=== PATIENT | female | born 1945 | race Caucasian/White ===

== ENCOUNTER → 2016-06-26 | Outpatient (CLI) | payer MEDICARE, MEDICAID | END | disposition home or self-care (01) | LOC: MAMMO 12:03 | PROVIDERS: ATTEND Internal Medicine | DX: Z12.31 Encounter for screening mammogram for malignant neoplasm of breast (principal) | CPT/HCPCS: G0202 ==

== ENCOUNTER 2017-05-01 17:14 | Emergency (ER) | payer MEDICARE, MEDICAID ==
[~2017-05-01] VITALS: Ht 160 cm; Wt 65.0 kg
[2017-05-01] MEDS ORDERED: SODIUM CHLORIDE 0.9% 1,000 ML IV ONE (21:15)
[2017-05-01 21:37] LABS: BASOPHILS % 0.4 % (0.0-2.0); EOSINOPHILS % 0.6 % (0.0-5.0); HEMATOCRIT. 34.5 % (36.0-48.0); HEMOGLOBIN. 11.8 g/dL (12.0-16.0); LYMPHOCYTES % 13.9 % (20.0-50.0); MEAN CORPUSCULAR HEMOGLOBIN 30.8 pg (28.0-32.0); MEAN CORPUSCULAR VOLUME 89.5 fL (81.0-99.0); MEAN PLATELET VOLUME 8.2 fl (7.4-10.4); MONOCYTES % 7.2 % (2.0-8.0); NEUTROPHILS % 77.9 % (40.0-76.0); PLATELET 231 x1000/uL (130-400); RED BLOOD CELL COUNT 3.85 mill/uL (4.2-5.4); RED CELL DISTRIBUTION WIDTH 12.7 % (11.6-14.6)
[2017-05-02 00:19] VITALS: BP 134/64
== END 2017-05-02 00:20 | disposition home or self-care (01) ==
LOC: ER 17:14
DX: B34.9 Viral infection, unspecified (principal); I48.91 Unspecified atrial fibrillation; I10 Essential (primary) hypertension; H40.9 Unspecified glaucoma; E11.9 Type 2 diabetes mellitus without complications
CPT/HCPCS: 36415; 71045; 80048; 85025; 87804; 96360; 96361; 99285; J7030

== ENCOUNTER 2017-11-01 10:14 | Emergency (ER) | payer MEDICARE, MEDICAID ==
[~2017-11-01] VITALS: Ht 162.6 cm; Wt 63.0 kg
[2017-11-01 14:21] LABS: CHLORIDE 106 mEq/L (98-107)
[2017-11-01 14:23] LABS: INR 1.4; PARTIAL THROMBOPLASTIN TIME 29.8 sec (23.4-31.0)
[2017-11-01 14:34] LABS: BASOPHILS % 0.2 % (0.0-2.0); EOSINOPHILS % 2.1 % (0.0-5.0); HEMATOCRIT. 41.2 % (36.0-48.0); HEMOGLOBIN. 13.7 g/dL (12.0-16.0); LYMPHOCYTES % 34.1 % (20.0-50.0); MEAN CORPUSCULAR VOLUME 93.2 fL (81.0-99.0); MEAN PLATELET VOLUME 8.4 fl (7.4-10.4); MONOCYTES % 7.9 % (2.0-8.0); NEUTROPHILS % 55.7 % (40.0-76.0); PLATELET 215 x1000/uL (130-400); RED BLOOD CELL COUNT 4.42 mill/uL (4.2-5.4); RED CELL DISTRIBUTION WIDTH 12.9 % (11.6-14.6)
[2017-11-01] MEDS ORDERED: FUROSEMIDE 20MG TABLET PO ONE (15:30)
[2017-11-01] MEDS ORDERED: POTASSIUM CHLORIDE 20MEQ TABLET SR PO ONE (15:30)
[2017-11-01 16:38] VITALS: BP 153/67
== END 2017-11-01 16:42 | disposition home or self-care (01) ==
LOC: ER 10:14
DX: R60.9 Edema, unspecified (principal); I10 Essential (primary) hypertension; I48.91 Unspecified atrial fibrillation; E11.9 Type 2 diabetes mellitus without complications; H40.9 Unspecified glaucoma
CPT/HCPCS: 36415; 71045; 73610; 80048; 83880; 84484; 85025; 85610; 85730; 93005; 93970; 99285

== ENCOUNTER 2018-03-28 15:56 | Emergency (ER) | payer MEDICARE, MEDICAID ==
[~2018-03-28] VITALS: Ht 162.6 cm; Wt 63.0 kg
[2018-03-28] MEDS ORDERED: HYDROCODONE/ACETAMINOPHEN 5/325MG TABLET PO ONE (20:45)
[2018-03-28 22:03] VITALS: BP 128/62
== END 2018-03-28 22:04 | disposition home or self-care (01) ==
LOC: ER 15:56
DX: S82.002A Unspecified fracture of left patella, initial encounter for closed fracture (principal); E11.9 Type 2 diabetes mellitus without complications; I10 Essential (primary) hypertension; I48.91 Unspecified atrial fibrillation; Z90.89 Acquired absence of other organs; W01.0XXA Fall on same level from slipping, tripping and stumbling without subsequent striking against object, initial encounter; Y93.89 Activity, other specified; Y92.89 Other specified places as the place of occurrence of the external cause; Y99.8 Other external cause status
CPT/HCPCS: 73562; 82962; 99283; L1830

== ENCOUNTER 2019-01-12 09:54 | Emergency (ER) | payer MEDICARE, MEDICAID ==
[~2019-01-12] VITALS: Ht 162.6 cm; Wt 64.0 kg
[2019-01-12 10:17] VITALS: BP 157/54
[2019-01-12] MEDS ORDERED: ACETAMINOPHEN 325MG TABLET PO STA (10:41)
== END 2019-01-12 13:08 | disposition home or self-care (01) ==
LOC: ER 09:54
DX: S92.355A Nondisplaced fracture of fifth metatarsal bone, left foot, initial encounter for closed fracture (principal); E11.9 Type 2 diabetes mellitus without complications; E89.0 Postprocedural hypothyroidism; W01.0XXA Fall on same level from slipping, tripping and stumbling without subsequent striking against object, initial encounter; Y93.89 Activity, other specified; Y92.018 Other place in single-family (private) house as the place of occurrence of the external cause
CPT/HCPCS: 73610; 73630; 99283

== ENCOUNTER 2020-05-01 11:13 | Emergency (ER) | payer MEDICARE, MEDICAID ==
[~2020-05-01] VITALS: Ht 162.6 cm; Wt 65.0 kg
[2020-05-01] MEDS ORDERED: FOLI-43 PO (11:31)
[2020-05-01] MEDS ORDERED: DILT120C11 PO (11:31)
[2020-05-01] MEDS ORDERED: GLIP10TA10 PO (11:31)
[2020-05-01] MEDS ORDERED: METF-416 PO (11:31)
[2020-05-01] MEDS ORDERED: FERR325T6 PO (11:31)
[2020-05-01] MEDS ORDERED: CARB-32 PO (11:31)
[2020-05-01] MEDS ORDERED: ALEN70TA79 PO (11:31)
[2020-05-01] MEDS ORDERED: METO100T16 PO (11:31)
[2020-05-01] MEDS ORDERED: ASPI-867 MT (11:31)
[2020-05-01] MEDS ORDERED: LISI30TA36 PO (11:31)
[2020-05-01 12:31] LABS: BASOPHILS % 0.2 % (0.0-2.0); EOSINOPHILS % 0.9 % (0.0-5.0); HEMATOCRIT. 42.5 % (36.0-48.0); HEMOGLOBIN. 14.4 g/dL (12.0-16.0); LYMPHOCYTES % 21.3 % (20.0-50.0); MEAN CORPUSCULAR HEMOGLOBIN 31.5 pg (28.0-32.0); MEAN CORPUSCULAR VOLUME 92.9 fL (81.0-99.0); MEAN PLATELET VOLUME 8.5 fl (7.4-10.4); NEUTROPHILS % 71.6 % (40.0-76.0); PLATELET 296 x1000/uL (130-400); RED BLOOD CELL COUNT 4.57 mill/uL (4.2-5.4); RED CELL DISTRIBUTION WIDTH 12.9 % (11.6-14.6)
[2020-05-01 12:35] LABS: CHLORIDE 103 mEq/L (98-107)
[2020-05-01] MEDS ORDERED: MECLIZINE 25MG TABLET PO ONE (12:45)
[2020-05-01 14:51] VITALS: BP 166/78
[2020-05-01] MEDS ORDERED: MECL-159 MT (15:35)
== END 2020-05-01 15:45 | disposition home or self-care (01) ==
LOC: ER 11:13 → CANBEDREQ 19:20
DX: R42 Dizziness and giddiness (principal); R25.1 Tremor, unspecified; I10 Essential (primary) hypertension; E11.65 Type 2 diabetes mellitus with hyperglycemia; Z98.890 Other specified postprocedural states; Z79.82 Long term (current) use of aspirin; Z79.899 Other long term (current) drug therapy
CPT/HCPCS: 36415; 70450; 71045; 80053; 84484; 85025; 93005; 99285; J8597

== ENCOUNTER 2021-03-27 08:53 | Emergency (ER) | payer MEDICARE, MEDICAID ==
[~2021-03-27] VITALS: Ht 162.6 cm; Wt 68.0 kg
[~2021-03-27 08:53] MED LIST: ALEN70TA79 PO; ASPI-867 MT; CARB-32 PO; DILT120C11 PO; FERR325T6 PO; FOLI-43 PO; GLIP10TA10 PO; LISI30TA36 PO; MECL-159 MT; METF-416 PO; METO100T16 PO
[2021-03-27 08:56] VITALS: BP 144/53
[2021-03-27 09:58] LABS: BASOPHILS % 0.4 % (0.0-2.0); EOSINOPHILS % 0.9 % (0.0-5.0); HEMATOCRIT. 38.5 % (36.0-48.0); HEMOGLOBIN. 13.1 g/dL (12.0-16.0); MEAN CORPUSCULAR HEMOGLOBIN 30.8 pg (28.0-32.0); MEAN CORPUSCULAR VOLUME 90.2 fL (81.0-99.0); MEAN PLATELET VOLUME 8.1 fl (7.4-10.4); MONOCYTES % 7.1 % (2.0-8.0); NEUTROPHILS % 71.6 % (40.0-76.0); PLATELET 273 x1000/uL (130-400); RED BLOOD CELL COUNT 4.27 mill/uL (4.2-5.4); RED CELL DISTRIBUTION WIDTH 12.3 % (11.6-14.6)
[2021-03-27 10:06] LABS: CHLORIDE 96 mEq/L (98-107)
[2021-03-27 11:01] LABS: CLARITY URINE CLEAR (CLEAR); COLOR URINE YELLOW (YELLOW); KETONES URINE NEGATIVE (NEGATIVE); LEUKOCYTE ESTERASE URINE 2+ (NEGATIVE); NITRITE URINE NEGATIVE (NEGATIVE); OCCULT BLOOD URINE NEGATIVE (NEGATIVE); PROTEIN URINE NEGATIVE (NEGATIVE); SPECIFIC GRAVITY URINE 1.009 (1.005-1.030); UROBILINOGEN URINE 0.2 E.U./dL (0.2-1.0)
[2021-03-27] MEDS ORDERED: NITR-87 MT (11:27)
== END 2021-03-27 12:05 | disposition home or self-care (01) ==
LOC: ER 08:53
DX: E87.1 Hypo-osmolality and hyponatremia (principal); R51.9 Headache, unspecified; N39.0 Urinary tract infection, site not specified; E11.9 Type 2 diabetes mellitus without complications
CPT/HCPCS: 36415; 80048; 81003; 85025; 85651; 87077; 99283

== ENCOUNTER 2021-05-14 21:01 | Emergency (ER) | payer MEDICARE, MEDICAID ==
[~2021-05-14] VITALS: Ht 167.6 cm; Wt 65.0 kg
[~2021-05-14 21:01] MED LIST changes: +NITR-87 MT
[2021-05-14 23:33] LABS: BASOPHILS % 0.2 % (0.0-2.0); EOSINOPHILS % 1.2 % (0.0-5.0); HEMATOCRIT. 36.4 % (36.0-48.0); HEMOGLOBIN. 12.8 g/dL (12.0-16.0); MEAN CORPUSCULAR HEMOGLOBIN 31.6 pg (28.0-32.0); MEAN CORPUSCULAR VOLUME 90.2 fL (81.0-99.0); MEAN PLATELET VOLUME 7.8 fl (7.4-10.4); MONOCYTES % 9.3 % (2.0-8.0); NEUTROPHILS % 53.3 % (40.0-76.0); PLATELET 251 x1000/uL (130-400); RED BLOOD CELL COUNT 4.04 mill/uL (4.2-5.4); RED CELL DISTRIBUTION WIDTH 12.6 % (11.6-14.6)
[2021-05-14 23:57] LABS: CHLORIDE 99 mEq/L (98-107)
[2021-05-15 01:44] VITALS: BP 131/59
== END 2021-05-15 02:17 | disposition home or self-care (01) ==
LOC: ER 21:01
DX: I10 Essential (primary) hypertension (principal); E11.9 Type 2 diabetes mellitus without complications; E89.0 Postprocedural hypothyroidism; Z79.84 Long term (current) use of oral hypoglycemic drugs
CPT/HCPCS: 36415; 80053; 85025; 99284

== ENCOUNTER 2022-03-07 08:48 | Emergency (ER) | payer MEDICARE, MEDICAID ==
[~2022-03-07] VITALS: Ht 167.6 cm; Wt 60.0 kg
[2022-03-07] MEDS ORDERED: CLONIDINE 0.2MG TABLET PO ONE (10:00)
[2022-03-07 10:22] LABS: BASOPHILS % 0.1 % (0.0-2.0); CHLORIDE 103 mEq/L (98-107); EOSINOPHILS % 0.4 % (0.0-5.0); HEMATOCRIT. 40.4 % (36.0-48.0); LYMPHOCYTES % 18.1 % (20.0-50.0); MEAN CORPUSCULAR HEMOGLOBIN 31.4 pg (28.0-32.0); MEAN CORPUSCULAR VOLUME 90.7 fL (81.0-99.0); MEAN PLATELET VOLUME 9.1 fl (7.4-10.4); MONOCYTES % 5.6 % (2.0-8.0); NEUTROPHILS % 75.8 % (40.0-76.0); PLATELET 261 x1000/uL (130-400); RED BLOOD CELL COUNT 4.45 mill/uL (4.2-5.4); RED CELL DISTRIBUTION WIDTH 12.9 % (11.6-14.6)
[2022-03-07 12:55] VITALS: BP 91/46
== END 2022-03-07 13:08 | disposition home or self-care (01) ==
LOC: ER 08:48
DX: I10 Essential (primary) hypertension (principal); E11.9 Type 2 diabetes mellitus without complications; Z98.890 Other specified postprocedural states; Z79.899 Other long term (current) drug therapy
CPT/HCPCS: 36415; 71045; 80053; 83880; 84484; 85025; 93005; 99285

== ENCOUNTER 2024-02-07 15:37 | Inpatient (IN) | payer MEDICARE, MEDICAID ==
[~2024-02-07] VITALS: Ht 162.6 cm; Wt 69.9 kg
[~2024-02-07 15:37] MED LIST changes: -ALEN70TA79 PO; -ASPI-867 MT; -GLIP10TA10 PO; +GLIP10TA17 PO; +INSU100I28 SQ; -MECL-159 MT; +MECL-299 MT; -NITR-87 MT
[2024-02-07 15:49] VITALS: O2SAT 99
[2024-02-07 16:32] LABS: BASOPHILS % 0.1 % (0.0-2.0); EOSINOPHILS % 0.4 % (0.0-5.0); HEMATOCRIT. 32.2 % (36.0-48.0); LYMPHOCYTES % 17.9 % (20.0-50.0); MEAN CORPUSCULAR HEMOGLOBIN 30.7 pg (28.0-32.0); MEAN CORPUSCULAR HGB CONC 34.2 g/dL (31.0-37.0); MEAN CORPUSCULAR VOLUME 89.8 fL (81.0-99.0); MEAN PLATELET VOLUME 7.3 fl (7.4-10.4); MONOCYTES % 8.3 % (2.0-8.0); NEUTROPHILS % 73.3 % (40.0-76.0); PLATELET 281 x1000/uL (130-400); RED BLOOD CELL COUNT 3.58 mill/uL (4.2-5.4); RED CELL DISTRIBUTION WIDTH 12.5 % (11.6-14.6); WHITE BLOOD COUNT 7.9 x1000/uL (4.5-11.0)
[2024-02-07 16:41] LABS: CHLORIDE 89 mEq/L (98-107); POTASSIUM 4.5 mEq/L (3.5-5.1)
[2024-02-07 16:42] LABS: CARBON DIOXIDE 23 mEq/L (21-32)
[2024-02-07 16:47] LABS: CREATININE 0.9 mg/dL (0.6-1.0); GLUCOSE 204 mg/dL (70-105); UREA NITROGEN BLOOD 16 mg/dL (9-23)
[2024-02-07 17:01] LABS: SODIUM 119 mEq/L (136-145)
[2024-02-07 18:38] LABS: ALANINE AMINOTRANSFERASE < 7 IU/L (10-49); ALBUMIN 4.1 g/dL (3.2-4.8); ASPARTATE AMINOTRANSFERASE 22 IU/L (<34); BILIRUBIN DIRECT 0.1 mg/dL (<=3.0); BILIRUBIN TOTAL 0.3 mg/dL (0.1-1.0); PROTEIN TOTAL 6.7 g/dL (6.0-8.3)
[2024-02-07 18:51] LABS: CLARITY URINE CLEAR (CLEAR); COLOR URINE YELLOW (YELLOW); GLUCOSE URINE NEGATIVE (NEGATIVE); KETONES URINE NEGATIVE (NEGATIVE); LEUKOCYTE ESTERASE URINE TRACE (NEGATIVE); NITRITE URINE NEGATIVE (NEGATIVE); OCCULT BLOOD URINE NEGATIVE (NEGATIVE); PH URINE 6.5 (4.5-8.0); PROTEIN URINE NEGATIVE (NEGATIVE); SPECIFIC GRAVITY URINE 1.005 (1.005-1.030); UROBILINOGEN URINE 0.2 E.U./dL (0.2-1.0)
[2024-02-07 18:55] LABS: SODIUM URINE RANDOM 31 mEq/L
[2024-02-07 19:01] LABS: OSMOLALITY URINE 170 mOsm/kg (500-850)
[2024-02-07 19:02] LABS: UREA NITROGEN URINE RANDOM 177 mg/dL
[2024-02-07 19:04] LABS: RBC URINE NONE SEEN /hpf (0-2)
[2024-02-07 19:05] LABS: BACTERIA URINE TRACE; SQUAMOUS EPITHELIAL CELL URINE RARE /lpf (RARE/1+)
[2024-02-07] MEDS: MORPHINE SULFATE 2 MG/ML INJ (NOT FOR IM USE) IV ONE (21:30)
[2024-02-07] MEDS: SODIUM CHLORIDE 1000MG TABLET PO ONE (21:58)
[2024-02-07] MEDS: FUROSEMIDE 20MG/2ML VIAL IVP ONE (22:00)
[2024-02-07 22:05] VITALS: BP 156/65; PULSE 75; RESP 16; TEMP 36.33624; O2SAT 100
[2024-02-07] MEDS ORDERED: DEXTROSE 50% WATER 50ML SYRINGE IV PRN (23:45)
[2024-02-07] MEDS ORDERED: ACETAMINOPHEN 500MG TABLET PO PRN (23:45)
[2024-02-07] MEDS: SODIUM CHLORIDE 0.9% 1,000 ML IV SCH (23:55)
[2024-02-08] VITALS (9 sets, daily range): BP systolic 128–161; BP diastolic 45–67; PULSE 71–103; RESP 16–20; TEMP 36.3624–36.61404; O2SAT 96–100
[2024-02-08] MEDS: TRAZODONE HCL 50MG TABLET PO PRN (00:13)
[2024-02-08] MEDS: HYDRALAZINE 20MG/ML VIAL IV PRN (00:19)
[2024-02-08 04:43] LABS: BASOPHILS % 0.2 % (0.0-2.0); EOSINOPHILS % 0.6 % (0.0-5.0); HEMOGLOBIN. 12.6 g/dL (12.0-16.0); LYMPHOCYTES % 26.8 % (20.0-50.0); MEAN CORPUSCULAR HEMOGLOBIN 31.2 pg (28.0-32.0); MEAN CORPUSCULAR VOLUME 89.1 fL (81.0-99.0); MEAN PLATELET VOLUME 7.2 fl (7.4-10.4); NEUTROPHILS % 60.4 % (40.0-76.0); PLATELET 306 x1000/uL (130-400); RED BLOOD CELL COUNT 4.03 mill/uL (4.2-5.4); RED CELL DISTRIBUTION WIDTH 12.7 % (11.6-14.6); WHITE BLOOD COUNT 6.8 x1000/uL (4.5-11.0)
[2024-02-08 05:35] LABS: CHLORIDE 97 mEq/L (98-107); POTASSIUM 3.8 mEq/L (3.5-5.1)
[2024-02-08 05:36] LABS: CALCIUM 9.1 mg/dL (8.7-10.4); CARBON DIOXIDE 24 mEq/L (21-32)
[2024-02-08 05:41] LABS: CREATININE 0.8 mg/dL (0.6-1.0); GLUCOSE 107 mg/dL (70-105); UREA NITROGEN BLOOD 11 mg/dL (9-23)
[2024-02-08 05:42] LABS: TROPONIN I HIGH SENSITIVITY 7 ng/L (3.0-34)
[2024-02-08 05:46] LABS: THYROID STIMULATING HORMONE 4.06 uIU/mL (0.55-4.78)
[2024-02-08 05:48] LABS: SODIUM 128 mEq/L (136-145)
[2024-02-08] MEDS: PANTOPRAZOLE 40MG DR TABLET PO SCH (06:02)
[2024-02-08] MEDS: BLOOD SUGAR DIAGNOSTIC STRIP TEST SCH (06:08)
[2024-02-08] MEDS: INSULIN LISPRO 100 UNITS/ML SUBCUT SCH (06:12)
[2024-02-08] MEDS ORDERED: TRAZODONE HCL 50MG TABLET PO SCH (21:00)
[2024-02-09] VITALS: BP 147/57; PULSE 93; RESP 20; TEMP 36.61404; O2SAT 100
[2024-02-09 04:00] VITALS: BP 159/63; PULSE 98; RESP 20; TEMP 36.61404; O2SAT 100
[2024-02-09 08:00] VITALS: BP 169/82; PULSE 110; RESP 19; TEMP 36.50292; O2SAT 100
[2024-02-09] MEDS: CLONIDINE 0.1MG TABLET PO SCH (10:32)
[2024-02-09] MEDS ORDERED: ONDANSETRON HCL 4MG/2ML INJ IV PRN (11:00)
[2024-02-09] MEDS ORDERED: ACETAMINOPHEN 325MG TABLET PO PRN ×2 (11:15)
[2024-02-09 12:00] VITALS: BP 148/67; PULSE 71; RESP 18; TEMP 36.44736; O2SAT 98
[2024-02-09 12:26] LABS: HEMATOCRIT 34.3 % (36.0-48.0); HEMOGLOBIN 11.7 g/dL (12.0-16.0); MEAN CORPUSCULAR HGB CONC 34.2 g/dL (31.0-37.0); MEAN CORPUSCULAR VOLUME 90.5 fL (81.0-99.0); PLATELET 284 x1000/uL (130-400); RED BLOOD CELL COUNT 3.79 mill/uL (4.2-5.4); RED CELL DISTRIBUTION WIDTH 12.6 % (11.6-14.6); WHITE BLOOD COUNT 5.4 x1000/uL (4.5-11.0)
[2024-02-09 12:30] LABS: CALCIUM 8.7 mg/dL (8.7-10.4); CARBON DIOXIDE 23 mEq/L (21-32); CHLORIDE 99 mEq/L (98-107); POTASSIUM 4.7 mEq/L (3.5-5.1); SODIUM 127 mEq/L (136-145)
[2024-02-09 12:35] LABS: CREATININE 0.9 mg/dL (0.6-1.0)
[2024-02-09 12:36] LABS: GLUCOSE 285 mg/dL (70-105); UREA NITROGEN BLOOD 11 mg/dL (9-23)
[2024-02-09] MEDS: DILTIAZEM HCL 60MG TABLET PO SCH (13:05)
[2024-02-09] MEDS: METOPROLOL TARTRATE 50MG TABLET PO SCH (13:06)
[2024-02-09 16:00] VITALS: BP 117/43; PULSE 66; RESP 18; TEMP 36.28068; O2SAT 99
[2024-02-09 20:00] VITALS: BP 139/51; PULSE 84; RESP 19; TEMP 36.61404; O2SAT 100
[2024-02-09] MEDS: HYDROCODONE/ACETAMINOPHEN 5/325MG TABLET PO PRN (21:21)
[2024-02-10] VITALS: BP 108/45; PULSE 55; RESP 18; TEMP 36.72516; O2SAT 100
[2024-02-10 04:00] VITALS: BP_SYST 132; BP_SYST 133; BP_DIAS 63; PULSE 62; RESP 18; TEMP 36.72516; O2SAT 100
[2024-02-10 06:51] LABS: CHLORIDE 99 mEq/L (98-107); POTASSIUM 4.5 mEq/L (3.5-5.1); SODIUM 127 mEq/L (136-145)
[2024-02-10 06:52] LABS: CALCIUM 9.1 mg/dL (8.7-10.4); CARBON DIOXIDE 25 mEq/L (21-32)
[2024-02-10 06:57] LABS: CREATININE 0.9 mg/dL (0.6-1.0); GLUCOSE 102 mg/dL (70-105); UREA NITROGEN BLOOD 14 mg/dL (9-23)
[2024-02-10 07:40] LABS: BASOPHILS % 0.2 % (0.0-2.0); EOSINOPHILS % 1.2 % (0.0-5.0); HEMATOCRIT. 32.5 % (36.0-48.0); HEMOGLOBIN. 11.2 g/dL (12.0-16.0); LYMPHOCYTES % 32.4 % (20.0-50.0); MEAN CORPUSCULAR HEMOGLOBIN 31.2 pg (28.0-32.0); MEAN CORPUSCULAR HGB CONC 34.3 g/dL (31.0-37.0); MEAN PLATELET VOLUME 7.2 fl (7.4-10.4); MONOCYTES % 11.6 % (2.0-8.0); NEUTROPHILS % 54.6 % (40.0-76.0); PLATELET 269 x1000/uL (130-400); RED BLOOD CELL COUNT 3.58 mill/uL (4.2-5.4); RED CELL DISTRIBUTION WIDTH 12.8 % (11.6-14.6)
[2024-02-10 08:00] VITALS: BP 154/64; PULSE 70; RESP 16; TEMP 37.16964; O2SAT 100
[2024-02-10] MEDS ORDERED: METOPROLOL TARTRATE 100MG TABLET PO SCH (09:00)
[2024-02-10 12:00] VITALS: BP 157/47; PULSE 60; RESP 18; TEMP 36.22512; O2SAT 100
== END 2024-02-10 15:05 | disposition left against medical advice (07) | DRG 426 ==
LOC: ER 15:37 → EDBEDREQ 21:08 → EDBEDREQTM 21:08 → 7EST 22:25
PROVIDERS: ADMIT Internal Medicine; ATTEND Internal Medicine
DX: E87.1 Hypo-osmolality and hyponatremia (principal); G20.A1 Parkinson's disease without dyskinesia, without mention of fluctuations; E11.65 Type 2 diabetes mellitus with hyperglycemia; R51.9 Headache, unspecified; I10 Essential (primary) hypertension; Z79.899 Other long term (current) drug therapy; K21.9 Gastro-esophageal reflux disease without esophagitis; Z53.29 Procedure and treatment not carried out because of patient's decision for other reasons
CPT/HCPCS: 36415; 70551; 71045; 74176; 80048; 80076; 81003; 82533; 82962; 83036; 83880; 83930; 83935; 84300; 84436; 84443; 84484; 84540; 85025; 85027; 93005; 99285; J0360; J1815; J1940; J2270; J7030